=== PATIENT | male | born 1995 | race Two or more races ===

== ENCOUNTER 2024-12-31 20:40 | Emergency (ER) | payer SELFPAY ==
[~2024-12-31] VITALS: Ht 185.4 cm; Wt 113.6 kg
[2024-12-31 20:50] VITALS: BP 133/90; PULSE 88; RESP 18; TEMP 98.1; O2SAT 99
[2024-12-31] MEDS ORDERED: FAMOTIDINE 20 MG TABLET PO ONE (22:30)
[2024-12-31] MEDS ORDERED: LIDOCAINE 2% VISCOUS 15 ML SOLUTION UDCUP PO ONE (22:30)
== END 2024-12-31 22:29 | disposition still patient (30) ==
LOC: EMS 20:48
DX: T18.9XXA Foreign body of alimentary tract, part unspecified, initial encounter (principal); R07.0 Pain in throat; Z87.891 Personal history of nicotine dependence; X58.XXXA Exposure to other specified factors, initial encounter; Y93.89 Activity, other specified; Y92.89 Other specified places as the place of occurrence of the external cause; Y99.8 Other external cause status
CPT/HCPCS: 99283; Z7502